=== PATIENT | female | born 1975 | race Caucasian/White ===

== ENCOUNTER 2022-09-13 11:10 | Outpatient (CLI) | payer BC, SELFPAY ==
--- NOTE | 2022-09-13 | ECG_ITS ---
Measurements Intervals [place] Rate: 69 P: 15 HI: 158 QRS: 56 QRSD: 91 T: 68 QT: 406 QTc: 436 Interpretive Statements SINUS RHYTHM NORMAL ECG NO PREVIOUS ECG AVAILABLE FOR COMPARISON Electronically Signed On 09-13-2022 14:39:44 ACUPRESSURIST by Jhonathan Walsh M.D.
== END 2022-09-13 11:11 | disposition home or self-care (01) ==
LOC: ANHCARD 11:17
PROVIDERS: Visit Provider Nurse Practitioner
DX: E66.9 Obesity, unspecified (principal)
CPT/HCPCS: 93005